=== PATIENT | female | born 1980 | race African-American/Black ===

== ENCOUNTER 2019-04-21 18:43 | Emergency (ER) | payer MEDICAID ==
[~2019-04-21] VITALS: Ht 162.6 cm; Wt 93.9 kg
[~2019-04-21 18:43] MED LIST: NKM; PEPCID40 MG PO
[2019-04-21] MEDS ORDERED: NKM (18:50)
--- NOTE | 2019-04-21 18:57 | NUR ---
ED Nurse Note: Patient walked in ED from home d/t lower abdominal pain x 4 days with pain level 4/10 with vaginal discharge. VSS, patient afebrile, no distress noted at this time. Will continue to monitor.
[2019-04-21 18:59] VITALS: BP 144/86
--- NOTE | 2019-04-21 19:08 | NUR ---
HAND-OFF: Report given to RIRI Seo. Urine collected and sent down to lab.
[2019-04-21 19:48] LABS: APPEARANCE,URINE SLIGHTLY CLOUDY; BILIRUBIN, URINE NEGATIVE (NEGATIVE); COLOR,URINE PALE YELLOW; GLUCOSE, URINE (UA) NEGATIVE (NEGATIVE); KETONES,URINE NEGATIVE (NEGATIVE); LEUKOCYTE ESTERASE ,URINE NEGATIVE (NEGATIVE); NITRITE,URINE NEGATIVE (NEGATIVE); PH,URINE 6 (4.5-8.0); PROTEIN,URINE 1+ (NEGATIVE); UROBILINOGEN,URINE NORMAL MG/DL (0.0-1.0)
[2019-04-21] MEDS ORDERED: NAPROXEN500 M2 ORAL (20:08)
--- NOTE | 2019-04-21 20:08 | Emergency Room Report ---
History of Present Illness General Chief Complaint: Abdominal Pain Source: Patient Present Illness HPI 38-year-old female presents to the emergency department complaining of 4 out of 10 severity lower abdominal cramping sensation in addition to irregular vaginal bleeding which occurred 3 times this month after having her period. Patient denies history of fibroids, ovarian cysts or suspicion of . Patient is . Patient denies adnexal pain or tenderness. She also reports that in between the episodes of dark vaginal bleeding she states she did notice a slight discharge. Patient states that she was evaluated at a women's clinic and was told that due to her being on her cycle that they are unable to obtain proper vaginal discharge samples. Denies nausea, vomiting, fevers, chills, syncope or dizziness. Patient denies history of blood dyscrasias. She denies constipation or diarrhea. Denies genital lesions or rashes. No other aggravating or relieving factors. She denies low back pain. Allergies: Coded Allergies: No Known Allergies (Unverified , 10/29/13) Patient History Past Medical History: see triage record Past Surgical History: none Pertinent Family History: none Last Menstrual Period: 04/20/19 Now: No : 2 Para: 2 Reviewed Nursing Documentation: PMH: Agreed; PSxH: Agreed Nursing Documentation-PMH Past Medical History: No Stated History Review of Systems All Other Systems: negative except mentioned in HPI Physical Exam Vital Signs Date Time Temp Pulse Resp B/P (MAP) Pulse Ox O2 Delivery O2 Flow Rate FiO2 04/21/19 18:45 98.2 72 17 144/86 (105) 100 Room Air Sp02 EP Interpretation: reviewed, normal General Appearance: no apparent distress, alert, GCS 15, non-toxic Head: normocephalic, atraumatic Eyes: bilateral eye normal inspection, bilateral eye PERRL ENT: hearing grossly normal, normal voice Neck: full range of motion Respiratory: lungs clear, normal breath sounds, speaking full sentences Cardiovascular #1: regular rate, rhythm Gastrointestinal: normal bowel sounds, non tender, soft, non-distended, no guarding Genitourinary: normal inspection, no CVA tenderness, deferred Musculoskeletal: back normal, normal range of motion, gait/station normal, non- tender Neurologic: alert, motor strength/tone normal, oriented x3, sensory intact, responsive, speech normal Psychiatric: judgement/insight normal Lymphatic: no adenopathy Medical Decision Making PA Attestation Dr. Dickens is my supervising Physician whom patient management has been discussed with. Diagnostic Impression: Primary Impression: Nabothian cyst Additional Impression: Abnormal vaginal bleeding ER Course 38-year-old female presents to the emergency department complaining of 4 out of 10 severity lower abdominal cramping sensation in addition to irregular vaginal bleeding which occurred 3 times this month after having her period. Patient denies history of fibroids, ovarian cysts or suspicion of . Patient is . Patient denies adnexal pain or tenderness. She also reports that in between the episodes of dark vaginal bleeding she states she did notice a slight discharge. Patient states that she was evaluated at a women's clinic and was told that due to her being on her cycle that they are unable to obtain proper vaginal discharge samples. Denies nausea, vomiting, fevers, chills, syncope or dizziness. Patient denies history of blood dyscrasias. She denies constipation or diarrhea. Denies genital lesions or rashes. No other aggravating or relieving factors. She denies low back pain. Ddx considered but are not limited to UTi , Pyelo, STI, Stone, Cystitis Vital signs: are WNL, pt. is afebrile H&PE are most consistent with UTI , will do pelvic US to r/o torsion, TOA, fibroid, and ovarian cysts. PT. is non-toxic in appearance, normal VS no suspicion of significant blood loss. pt. NAD. ORDERS: - UA labs are attached --most indicative of contamination: presence of equal amounts of bacteria and squamous cells, no elevation in inflammatory markers, nitrite negative. -Motrin PO -Pelvic US: nabothian cyst. ED INTERVENTIONS: - Motrin PO DISCHARGE: At this time pt. is stable for d/c to home. Will provide printed patient care instructions, and any necessary prescriptions. Care plan and follow up instructions have been discussed with the patient prior to discharge. Labs Test 04/21/19 19:05 Urine Color Pale yellow Urine Appearance Slightly cloudy Urine pH 6 (4.5-8.0) Urine Specific George 1.020 (1.005-1.035) Urine Protein 1+ (NEGATIVE) Urine Glucose (UA) Negative (NEGATIVE) Urine Ketones Negative (NEGATIVE) Urine Blood 4+ (NEGATIVE) Urine Nitrite Negative (NEGATIVE) Urine Bilirubin Negative (NEGATIVE) Urine Urobilinogen Normal MG/DL (0.0-1.0) Urine Leukocyte Esterase Negative (NEGATIVE) Urine RBC 15-20 /HPF (0 - 2) Urine WBC 0 /HPF (0 - 2) Urine Squamous Epithelial Cells Many /LPF (NONE/OCC) Urine Bacteria Few /HPF (NONE) Urine HCG, Qualitative Negative (NEGATIVE) CT/MRI/US Diagnostic Results CT/MRI/US Diagnostic Results : Imaging Test Ordered: Pelvic US Impression " Small nabothian cyst" Per US Tech verbal report. Last Vital Signs Date Time Temp Pulse Resp B/P (MAP) Pulse Ox O2 Delivery O2 Flow Rate FiO2 04/21/19 18:59 98.2 72 17 144/86 100 Room Air Disposition: HOME, SELF-CARE Condition: Stable Scripts Naproxen* (NAPROXEN*) 500 Mg Tablet 500 MG ORAL TWICE A WEEK, #14 TAB 0 Refills Prov: Briseyda Gray 04/21/19 Patient Instructions: Metrorrhagia, [id number] Additional Instructions: Take medications as directed. Follow up with a Your PCP or LITIGATION ATTORNEY ASSOCIATE within 3 days, even if your symptoms have resolved. Return sooner to ED if new symptoms occur, or current symptoms become worse. - Please note that this Emergency Department Report was dictated using [employer] offbearer technology software, occasionally this can lead to erroneous entry secondary to interpretation by the dictation equipment. Briseyda Gray Apr 21, 2019 20:08
[2019-04-21 20:19] VITALS: BP 144/86
--- NOTE | 2019-04-21 20:20 | NUR ---
ED Nurse Note: Pt cleared by health care Provider for discharge. DC instructions/prescription was given and explained to pt and verbalized understanding of teachings. All medical deviecs such as ID band removed. Pt is AAO x4, ambulatory and left with all personal belongings.
--- NOTE | 2019-04-21 20:25 | Diagnostic Imaging Report ---
Indication:Lower abdominal and pelvic pain Technique: Grayscale and duplex Doppler imaging of the pelvis performed utilizing a transabdominal and endovaginal scan. Comparison: None Findings: The size, contour, and configuration of the uterus is within normal limits. The endometrium is uniformly echogenic and normal in thickness. Endometrium is 8 mm. Multiple cervical nabothian cysts noted. The ovaries appear normal bilaterally with good dopplerable blood flow. There is no significant free fluid identified. Right ovary 4.5 x 3.8 x 1.3 cm. Left ovary 3.4 x 3 x 1.4 cm. Uterus measures 10 x 4 x 5 cm. IMPRESSION: Negative pelvic ultrasound. No acute findings.
== END 2019-04-21 20:20 | disposition home or self-care (01) ==
LOC: EMR 20:20
DX: N88.8 Other specified noninflammatory disorders of cervix uteri (principal); N93.9 Abnormal uterine and vaginal bleeding, unspecified
CPT/HCPCS: 76830; 76856; 81003; 81025; Z7502; 99284

== ENCOUNTER 2019-08-15 18:22 | Emergency (ER) | payer MEDICAID ==
[~2019-08-15] VITALS: Ht 162.6 cm; Wt 93.9 kg
[~2019-08-15 18:22] MED LIST changes: +NAPROXEN500 M2 ORAL
[2019-08-15 18:28] VITALS: BP 135/70
--- NOTE | 2019-08-15 18:41 | Emergency Room Report ---
History of Present Illness General Chief Complaint: Earache Present Illness HPI 38-year-old female presents to the emergency department complaining of 4 out of 10 severity right-sided earache x3 days. Patient reports that she had mild cough last week which resolved on its own. She denies fevers or chills. She denies Q-tip use, bleeding from the ear, ear drainage or changes in hearing/ loss of hearing. Patient denies tinnitus. Patient reports her pain is a pressure sensation. She also reports having an odd discomfort in the right side of her throat. She denies swollen tender lymph nodes. Denies recent travel. Denies contact with persons who have tested positive for or are under investigation/quarantine for COVID-19. COVID-19 risk:Contact w/high r: No COVID-19 risk:Travel to affect: No Has patient experienced mcmillan: No Coronavirus symptoms experienc: Cough Allergies: Coded Allergies: No Known Allergies (Unverified , 10/29/13) Patient History Past Medical History: see triage record Past Surgical History: none Pertinent Family History: none Last Menstrual Period: na Now: No Reviewed Nursing Documentation: PMH: Agreed; PSxH: Agreed Review of Systems All Other Systems: negative except mentioned in HPI Physical Exam Vital Signs Date Time Temp Pulse Resp B/P (MAP) Pulse Ox O2 Delivery O2 Flow Rate FiO2 08/15/19 18:18 98.8 82 17 121/79 (93) 97 Room Air Sp02 EP Interpretation: reviewed, normal General Appearance: no apparent distress, alert, GCS 15, non-toxic Head: normocephalic, atraumatic Eyes: bilateral eye normal inspection, bilateral eye PERRL ENT: hearing grossly normal, normal pharynx, normal voice, TMs + canals normal , uvula midline, moist mucus membranes Neck: full range of motion, no meningismus, no bony tend Respiratory: lungs clear, normal breath sounds, no wheezing, speaking full sentences Cardiovascular #1: regular rate, rhythm Musculoskeletal: normal range of motion, gait/station normal, non-tender Neurologic: alert, motor strength/tone normal, oriented x3, sensory intact, responsive, speech normal Psychiatric: judgement/insight normal Skin: normal color, normal inspection Lymphatic: no adenopathy Medical Decision Making PA Attestation Dr. Kat is my supervising Physician whom patient management has been discussed with. Diagnostic Impression: Primary Impression: Earache symptoms in right ear Additional Impression: Cough ER Course 38-year-old female presents to the emergency department complaining of 4 out of 10 severity right-sided earache x3 days. Patient reports that she had mild cough last week which resolved on its own. She denies fevers or chills. She denies Q-tip use, bleeding from the ear, ear drainage or changes in hearing/ loss of hearing. Patient denies tinnitus. Patient reports her pain is a pressure sensation. She also reports having an odd discomfort in the right side of her throat. She denies swollen tender lymph nodes. Denies recent travel. Denies contact with persons who have tested positive for or are under investigation/quarantine for COVID-19. Ddx considered but are not limited to OM, OE, mastoiditis, TM perforation, FB Vital signs: are WNL, pt. is afebrile H&PE are most consistent with normal physical exam, no OM/OE at this time. sinus congestion is present and is most likely etiology of this pt.'s symptoms. ORDERS: none required at this time, the diagnosis is clinical -OTOSCOPY: both right and left TM's and Canals are WNL ED INTERVENTIONS: None required at this time. DISCHARGE: At this time pt. is stable for d/c to home. Will provide printed patient care instructions, and any necessary prescriptions. Care plan and follow up instructions have been discussed with the patient prior to discharge. Last Vital Signs Date Time Temp Pulse Resp B/P (MAP) Pulse Ox O2 Delivery O2 Flow Rate FiO2 08/15/19 18:18 98.8 82 17 121/79 (93) 97 Room Air Disposition: HOME, SELF-CARE Condition: Stable Scripts Acetaminophen* (TYLENOL EXTRA STRENGTH*) 500 Mg Tablet 500 MG ORAL Q6H PRN for Mild Pain/Temp > 100.5, #20 TAB 0 Refills Prov: Briseyda Gray 08/15/19 Cetirizine Hcl/Pseudoephedrine (ZYRTEC-D TABLET) 1 Each Tab.er.12h 1 EACH ORAL Q12HR for 10 Days, #20 TAB Prov: Briseyda Gray 08/15/19 Patient Instructions: Earache Additional Instructions: DUE TO YOUR EXPOSURE TO THE COVID-19 INFECTION OR DISPLAYING COVID-19 SYMPTOMS: YOU ARE TO SELF-QUARANTINE AT HOME FOR THE NEXT 14 DAYS EVEN IF YOU ARE NOT HAVING ANY SYMPTOMS. *!* QUARANTINE IS TO BE TAKEN SERIOUSLY, ALTHOUGH YOUR SYMPTOMS MAY BE MILD OR RESOLVE IN A FEW DAYS. YOUR ADHERENCE TO SELF-QUARANTINE IS IMPORTANT FOR OTHERS IN THE COMMUNITY WHO MAY COME IN CONTACT WITH SOMETHING YOU TOUCH OR IN CLOSE DISTANCE OF YOU. ------ DO NOT EXPOSE ANOTHER PERSON IN THE COMMUNITY WHOM MAY HAVE A WEAKER IMMUNE SYSTEM THAN YOU, THIS VIRUS CAN CAUSE LIFE-THREATENING COMPLICATIONS ---- - ----- PLEASE NOTIFY ALL CLOSE CONTACTS IN THE LAST 2 WEEKS THAT THEY SHOULD STAY SELF-QUARANTINED INSIDE WELL UNTIL YOU RECEIVE YOUR RESULTS. CONTACT YOUR HEALTHCARE PROVIDER FOR AT HOME TREATMENT AND MONITORING IF YOU BEGIN EXPERIENCING ANY SYMPTOMS. ---- IF YOUR SYMPTOMS ARE VERY SEVERE OR YOU DEVELOP SHORTNESS OF BREATH/ DIFFICULTY BREATHING, FEVERS THAT DON'T RESPOND TO TYLENOL/MOTRIN THEN RETURN TO THE EMERGENCY DEPARTMENT FOR ADMISSION CONSIDERATION. * PLEASE REVIEW PROVIDED COVID-19 SELF QUARANTINE INFORMATION DOCUMENT THAT IS PROVIDED TO YOU * AT THIS PRESENT TIME YOUR VITAL SIGNS ARE STABLE AND YOU ARE STABLE TO BE TREATED AN OUTPATIENT AT HOME. Take medications as directed. Follow up with a Primary Care Provider in 3-5 days, even if your symptoms have resolved. TELEPHONE CONTACT Unless directed to physically show up in person by the Primary Care provider or their staff. --Please review list of primary care clinics, if you do not already have a primary care provider Return sooner to ED if new symptoms occur, or current symptoms become worse. - Please note that this Emergency Department Report was dictated using [employer] technology software, occasionally this can lead to erroneous entry secondary to interpretation by the dictation equipment. Briseyda Gray Aug 15, 2019 18:41
[2019-08-15] MEDS ORDERED: TYLENOL EXTRA500 MG ORAL (18:43)
[2019-08-15] MEDS ORDERED: ZYRTEC-D TABLE1 EACH ORAL (18:43)
[2019-08-15 18:52] VITALS: BP 140/74
== END 2019-08-15 18:53 | disposition home or self-care (01) ==
LOC: EDBD 18:22 → EMR 18:45
DX: H92.01 Otalgia, right ear (principal); R05 Cough
CPT/HCPCS: 99282

== ENCOUNTER 2019-09-16 23:07 | Emergency (ER) | payer SELFPAY ==
[~2019-09-16] VITALS: Ht 165.1 cm; Wt 95.3 kg
[~2019-09-16 23:07] MED LIST changes: +TYLENOL EXTRA500 MG ORAL; +ZYRTEC-D TABLE1 EACH ORAL
[2019-09-16 23:15] VITALS: BP 128/75
--- NOTE | 2019-09-16 23:15 | NUR ---
ED Nurse Note: Patient walked in from home, pt fell on right arm going up stairs and is unable to move right arm and fingers. Pain 10/10 over right forearm to hand. Patient aao x 4 and ambulatory with steady gait. Patient in stable condition.
--- NOTE | 2019-09-16 23:17 | NUR ---
ED Nurse Note: ERMD at bedside.
--- NOTE | 2019-09-16 23:21 | Emergency Room Report ---
History of Present Illness General Chief Complaint: Upper Extremity Injury Source: Patient Present Illness HPI This is a 39-year-old female who is right-hand dominant. She presents with chief complaint of injury to her right forearm and wrist. Onset just prior to arrival. She was walking on the steps and missed the last second step and fell. She slipped on the placement and then landed on her right arm. She complained of pain to the proximal forearm going down to the wrist area. Worse with movement. No loss of consciousness. Pain is 8 out of 10. Better with rest. Pain is sharp in nature. Also felt numbness to the forearm. Allergies: Coded Allergies: No Known Allergies (Unverified , 10/29/13) COVID-19 Screening Contact w/high risk pt: No Recent Travel to affected area: No Experienced COVID-19 symptoms?: No COVID-19 symptoms experienced: Cough Patient History Past Medical History: see triage record, old chart reviewed Past Surgical History: none Pertinent Family History: none Social History: Denies: smoking Now: No Immunizations: other Reviewed Nursing Documentation: PMH: Agreed; PSxH: Agreed Nursing Documentation-PMH Past Medical History: No Stated History Review of Systems Eye: Denies: eye pain, blurred vision ENT: Denies: ear pain, nose congestion, throat swelling Respiratory: Denies: cough, shortness of breath Cardiovascular: Denies: chest pain, palpitations Gastrointestinal: Denies: abdominal pain, diarrhea, nausea, vomiting Musculoskeletal: Reports: joint pain, muscle pain; Denies: back pain Skin: Denies: rash Neurological: Denies: headache, numbness Endocrine: Denies: increased thirst, increased urine Hematologic/Lymphatic: Denies: easy bruising All Other Systems: negative except mentioned in HPI Physical Exam Vital Signs Date Time Temp Pulse Resp B/P (MAP) Pulse Ox O2 Delivery O2 Flow Rate FiO2 09/16/19 23:11 98.8 66 18 130/77 (94) 100 Room Air Vitals normal Sp02 EP Interpretation: reviewed, normal General Appearance: well appearing, no apparent distress, alert Head: normocephalic, atraumatic Eyes: bilateral eye PERRL, bilateral eye EOMI ENT: hearing grossly normal, normal pharynx Neck: full range of motion, supple, no meningismus Respiratory: chest non-tender, lungs clear, normal breath sounds Cardiovascular #1: regular rate, rhythm, no murmur Gastrointestinal: normal bowel sounds, non tender, no mass, no organomegaly, no bruit, non-distended Musculoskeletal: back normal, gait/station normal, other - Right forearm: She has tenderness to the proximal forearm. No deformity. Also tenderness to the wrist area. Full range of motion however. Psychiatric: mood/affect normal Procedures Splinting Splinting : Consent: Verbal Location: Right forearm Hand-Made Type: plaster Splint: sugar-tong Pre-Proc Neuro Vasc Exam: normal Post-Proc Neuro Vasc Exam: normal Patient Tolerated: Well Complications: None Medical Decision Making Diagnostic Impression: Primary Impression: Radius shaft fracture Qualified Codes: S52.321A - Displaced transverse fracture of shaft of right radius, initial encounter for closed fracture ER Course Patient presents with a displaced midshaft fracture of the radius. No dislocation. Patient splinted and will discharge home with orthopedic referral. No compartment syndrome. Other X-Ray Diagnostic Results Other X-Ray Diagnostic Results : X-Ray ordered: Right forearm x-rays # of Views/Limited Vs Complete: 4 View Indication: Pain EP Interpretation: Yes Interpretation: no dislocation, no soft tissue swelling, other - Shaft displaced radius fracture Impression: Other - radius frx Electronically Signed by: Yash Patrick MD Last Vital Signs Date Time Temp Pulse Resp B/P (MAP) Pulse Ox O2 Delivery O2 Flow Rate FiO2 09/16/19 23:11 98.8 66 18 130/77 (94) 100 Room Air Status: improved Disposition: HOME, SELF-CARE Condition: Stable Scripts Ibuprofen* (MOTRIN*) 600 Mg Tablet 600 MG ORAL Q8H PRN for FOR PAIN, #30 TAB 0 Refills Prov: Yash Patrick MD 09/16/19 Hydrocodone/Acetaminophen 5-325* (HYDROCODONE/ACETAMINOPHEN 5-325*) 1 Each Tablet 1 TAB ORAL Q6H PRN for For Pain, #30 TAB 0 Refills Prov: Yash Patrick MD 09/16/19 Additional Instructions: Elevate arm. Ice pack to the area. Wear splint. Follow-up with your doctor within a week for referral to see orthopedic doctor. Return if worse. Yash Patrick MD Sep 16, 2019 23:21
[2019-09-16] MEDS ORDERED: HYDROcodone/Acetamin 5/325 tab ORAL ONE (23:30)
--- NOTE | 2019-09-16 23:30 | NUR ---
ED Nurse Note: Xray at bedside.
--- NOTE | 2019-09-16 23:45 | NUR ---
ED Nurse Note: ERMD at bedside.
[2019-09-16] MEDS ORDERED: HYDROCODON-ACE1 EA15 ORAL (23:51)
[2019-09-16] MEDS ORDERED: IBUPROFEN600 M1 ORAL (23:51)
[2019-09-17 00:15] VITALS: BP 130/72
--- NOTE | 2019-09-17 00:15 | NUR ---
ER DISCHARGE NOTE: Patient is cleared to be discharged per ERMD, pt is aox4, on room air, with stable vital signs. pt was given dc and prescription instructions, along with ortho clinic info and return to work note, pt was able to verbalize understanding, pt id band removed. pt is able to ambulate with steady gait. pt took all belongings. pt stable upon discharge.
--- NOTE | 2019-09-17 08:31 | Diagnostic Imaging Report ---
Indications: Pain in right forearm after fall today Technique: Two views of the right forearm Comparison: None Findings: There is an oblique midshaft radial fracture. This is displaced posteriorly and laterally by one bone width. No associated ulnar fracture. Impression: Positive for midshaft radial fracture
[2019-09-17] MEDS ORDERED: NORCO 5-325 TA1 EAC1 ORAL ×3 (14:26→14:31)
== END 2019-09-17 00:15 | disposition home or self-care (01) ==
LOC: EMR 23:20
DX: S52.321A Displaced transverse fracture of shaft of right radius, initial encounter for closed fracture (principal); W01.0XXA Fall on same level from slipping, tripping and stumbling without subsequent striking against object, initial encounter; Y92.9 Unspecified place or not applicable; R05 Cough
CPT/HCPCS: 29125; 99283